=== PATIENT | male | born 1950 | race Hispanic/Latino ===

== ENCOUNTER 2016-10-05 10:07 | Emergency (ER) | payer MEDICARE, OTHER ==
[2016-10-05 10:07] VITALS: BMI 30.4
[2016-10-05 10:22] VITALS: RESP 19; TEMP 98
[2016-10-05 10:34] VITALS: BP 138/90; PULSE 81; O2SAT 98
--- NOTE | 2016-10-05 11:19 | ED PDOC ---
HPI: General Adult Time Seen by Provider: 10/05/16 10:37 Chief Complaint (Nursing): Flu-like Symptoms Chief Complaint (Provider): cough with sputum History Per: Patient History/Exam Limitations: no limitations Additional Complaint(s): 66yo male comes in complaining of worsening cough for 3 weeks. States he occasionally gets nausea from coughing. Reports sputum and pleuritic paoin. No fever or chills. States he had a normal cardiac workup when was diagnosed with pancreatitis several years ago. Has not seen his PMD Past Medical History Reviewed: Historical Data, Nursing Documentation, Vital Signs Vital Signs: Last Vital Signs Temp 98.0 F 10/05/16 10:22 Pulse 81 10/05/16 10:33 Resp 19 10/05/16 10:33 BP 138/90 10/05/16 10:33 Pulse Ox 98 10/05/16 11:22 - Medical History PMH: Gall Bladder Disease, Pancreatitis Denies: HIV, Chronic Kidney Disease - Family History Family History: States: Unknown Family Hx - Home Medications Home Medications: Ambulatory Orders Medication Instructions Recorded Albuterol HFA [Ventolin HFA 90 2 puff IH Q4 PRN #1 unit 10/05/16 mcg/actuation (8 g)] Aspirin [Adult Low Dose Aspirin EC] 1 tab PO DAILY 10/05/16 Azithromycin [Zithromax] 250 mg PO DAILY #6 tab 10/05/16 Prednisone 50 mg PO DAILY #4 tablet 10/05/16 - Allergies Allergies/Adverse Reactions: Allergies Allergy/AdvReac Type Severity Reaction Status Date / Time No Known Allergies Allergy Verified 10/05/16 10:35 Review of Systems ROS Statement: Except As Marked, All Systems Reviewed And Found Negative Constitutional: Negative for: Fever, Chills Respiratory: Positive for: Cough, Pleuritic Pain, Sputum Physical Exam - Reviewed Nursing Documentation Reviewed: Yes Vital Signs Reviewed: Yes - Physical Exam Appears: Positive for: Well, Non-toxic, No Acute Distress Head Exam: Positive for: ATRAUMATIC, NORMAL INSPECTION, NORMOCEPHALIC Skin: Positive for: Warm, Dry Eye Exam: Positive for: EOMI, PERRL ENT: Positive for: Normal ENT Inspection Neck: Positive for: Normal, Painless ROM Cardiovascular/Chest: Positive for: Regular Rate, Rhythm, Other (+anterior chest wall tenderness, upper) Respiratory: Positive for: Wheezing (bilateral wheezing on expiration). Negative for: Rales, Rhonchi, Stridor, Respiratory Distress Gastrointestinal/Abdominal: Positive for: Normal Exam, Soft. Negative for: Tenderness Extremity: Positive for: Normal ROM, Capillary Refill (normal ). Negative for: Tenderness, Swelling Neurologic/Psych: Positive for: Alert, Oriented, Gait (normal ). Negative for: Motor/Sensory Deficits - Laboratory Results Result Diagrams: 10/05/16 10:45 10/05/16 10:45 - ECG ECG: Positive for: Interpreted By Me, Viewed By Me ECG Rhythm: Positive for: Normal QRS, Normal ST Segment, Sinus Rhythm (84). Negative for: ST/T Changes O2 Sat by Pulse Oximetry: 98 Pulse Ox Interpretation: Normal - Radiology X-Ray: Interpreted by Me X-Ray Interpretation: No Acute Disease Nebulizer Treatments/Peak Flow - Duonebs Number of Bronchodilator Doses given?: 3 - Steroid Treatment Steroid: IV - Clinical Response Clinical Response: Improved Medical Decision Making Medical Decision Making: rule out pneumonia, bronchitis, underlying heart disease. labs reviewed with no acute finding negative trop, d-dimer, EKG and CXR after nebs feeling better. no chest pain or sob, cough resolved lungs CTA bilateral given age and smoking will cover with azithro discussed finding. stable for discharge SaO2 99%, HR 72 Disposition - Clinical Impression Clinical Impression: Bronchitis - Patient ED Disposition Is Patient to be Admitted: No Counseled Patient/Family Regarding: Studies Performed, Diagnosis, Need For Followup, Rx Given - Disposition Disposition: Routine/Home Disposition Time: 14:40 Condition: IMPROVED Additional Instructions: follow up without fail with your doctor return for any new concerns Prescriptions: Prednisone 50 mg PO DAILY #4 tablet Albuterol HFA [Ventolin HFA 90 mcg/actuation (8 g)] 2 puff IH Q4 PRN #1 unit PRN Reason: Wheezing Azithromycin [Zithromax] 250 mg PO DAILY #6 tab Instructions: Acute Bronchitis (ED) Print Language: [place] Additional Comments - Additional Comments Additional Comments: Scribe Attestation Documented by Dickson Patel, acting as a scribe for Jordin Schrader PA-C. Provider Scribe Attestation All medical record entries made by the Scribe were at my direction and personally dictated by me. I have reviewed the chart and agree that the record accurately reflects my personal performance of the history, physical exam, medical decision making, and the department course for this patient. I have also personally directed, reviewed, and agree with the discharge instructions and disposition.
[2016-10-05] MEDS: Albuterol-Ipratrop 3 mg / 0.5 (3 ml) UD INH SCH ×3 (11:29→11:48)
[2016-10-05 11:32] LABS: BASO # 0.1 K/uL (0.0-0.2); BASO % 1.1 % (0.0-2.0); EOS # 0.2 K/uL (0.0-0.7); EOS % 2.8 % (0.0-4.0); HEMATOCRIT 43.4 % (35.0-51.0); LYMPH # 2.6 K/uL (1.0-4.3); LYMPH % 32.9 % (20.0-40.0); MEAN CELL VOLUME 100.5 fl (80.0-94.0); MEAN CORPUSCULAR HEMOGLOBIN 33.4 pg (27.0-31.0); MEAN CORPUSCULAR HGB CONC 33.3 g/dL (33.0-37.0); MEAN PLATELET VOLUME 8.2 fl (7.2-11.7); MONO # 0.6 K/uL (0.0-0.8); MONO % 7.7 % (0.0-10.0); NEUT # 4.4 K/uL (1.8-7.0); NEUT % 55.5 % (50.0-75.0); NRBC % 0.1 % (0.0-0.0); RED CELL DISTRIBUTION WIDTH 12.3 % (11.5-14.5)
[2016-10-05 11:42] LABS: ALB/GLOB RATIO 1.3 (1.0-2.1); ALKALINE PHOSPHATASE 47 U/L (38-126); ALT/SGPT 35 U/L (21-72); AST/SGOT 26 U/L (17-59); BILIRUBIN,TOTAL 1.1 mg/dl (0.2-1.3); BLOOD UREA NITROGEN 11 mg/dl (9-20); CALCIUM 9.3 mg/dL (8.4-10.2); CARBON DIOXIDE 25 mmol/L (22-30); CHLORIDE 104 mmol/L (98-107); GFR AFRICAN-AMERICAN > 60; GLUCOSE,RANDOM 93 mg/dL (75-110); LIPASE 85 U/L (23-300); POTASSIUM 4.1 MMOL/L (3.6-5.0); SODIUM 143 mmol/l (132-148); TOTAL PROTEIN 7.5 G/DL (6.3-8.2)
--- NOTE | 2016-10-05 15:32 | RAD ---
HISTORY: chest pain COMPARISON: No prior. TECHNIQUE: Chest PA and lateral FINDINGS: LUNGS: No active pulmonary disease. PLEURA: No significant pleural effusion identified. No pneumothorax apparent. CARDIOVASCULAR: Normal. OSSEOUS STRUCTURES: No significant abnormalities. VISUALIZED UPPER ABDOMEN: Normal. OTHER FINDINGS: None. IMPRESSION: No active disease.
--- NOTE | 2016-10-07 08:09 | CARD ---
APPROVED REPORT EKG Measurement Heart [id number] [id number] <Conclusion> Normal sinus rhythm Normal ECG
== END 2016-10-05 14:50 | disposition home or self-care (01) ==
LOC: H.ER 10:07
DX: J40 Bronchitis, not specified as acute or chronic (principal); R05 Cough; R07.9 Chest pain, unspecified
CPT/HCPCS: 71020; 80053; 83690; 83880; 84484; 85025; 85378; 93005; 94640; 96374; 99284; J2930

== ENCOUNTER 2018-03-24 | Emergency (ER) | payer MEDICARE ==
[2018-03-24] VITALS: BMI 30.4
[2018-03-24 00:46] LABS: BASO # 0.2 K/uL (0.0-0.2); BASO % 2.7 % (0.0-2.0); EOS # 0.3 K/uL (0.0-0.7); EOS % 4.4 % (0.0-4.0); LYMPH # 2.8 K/uL (1.0-4.3); LYMPH % 45.6 % (20.0-40.0); MEAN CELL VOLUME 98.8 fl (80.0-94.0); MEAN CORPUSCULAR HEMOGLOBIN 33.4 pg (27.0-31.0); MEAN CORPUSCULAR HGB CONC 33.8 g/dL (33.0-37.0); MEAN PLATELET VOLUME 7.7 fl (7.2-11.7); MONO # 0.6 K/uL (0.0-0.8); MONO % 9.6 % (0.0-10.0); NEUT # 2.3 K/uL (1.8-7.0); NEUT % 37.7 % (50.0-75.0); RBC 4.48 Mil/uL (4.40-5.90); RED CELL DISTRIBUTION WIDTH 12.8 % (11.5-14.5); WHITE BLOOD COUNT 6.2 K/uL (4.8-10.8)
[2018-03-24 00:53] LABS: ALB/GLOB RATIO 1.3 (1.0-2.1); ALBUMIN 3.9 g/dL (3.5-5.0); CALCIUM 9.2 mg/dL (8.4-10.2); GFR NON-AFRICAN AMERICAN > 60
[2018-03-24 01:00] LABS: PROTHROMBIN TIME 10.5 Seconds (9.8-13.1)
[2018-03-24 01:03] LABS: PARTIAL THROMBOPLASTIN TIME 29.6 Seconds (25.6-37.1)
[2018-03-24 01:07] LABS: ALT/SGPT 41 U/L (21-72); AST/SGOT 41 U/L (17-59); BLOOD UREA NITROGEN 19 mg/dl (9-20)
[2018-03-24 01:17] LABS: B-TYPE NATRIURETIC PEPTIDE 49.6 pg/ml (0-900)
[2018-03-24] MEDS ORDERED: Albuterol-Ipratrop 3 mg / 0.5 (3 ml) UD INH STA (01:17)
[2018-03-24] MEDS ORDERED: Albuterol-Ipratrop 3 mg / 0.5 (3 ml) UD ONE (01:22)
--- NOTE | 2018-03-24 01:32 | ED PDOC ---
HPI: SOB/CHF/COPD Time Seen by Provider: 03/24/18 00:14 Chief Complaint (Nursing): Shortness Of Breath Chief Complaint (Provider): Cough History Per: Patient History/Exam Limitations: no limitations Onset/Duration Of Symptoms: Days (x14) Current Symptoms Are (Timing): Still Present Additional Complaint(s): Jarvis Dougherty is a 67 year old male with no past medical history who is presenting to the ED for evaluation of cough and associated congestion, onset 2 weeks ago. Patient also complains of chest tightness and is unable to expectorate but feels like he has phlegm and pressure to forehead. He denies any nausea, vomiting, or visual disturbances. PMD: none provided Past Medical History Reviewed: Historical Data, Nursing Documentation, Vital Signs Vital Signs: Last Vital Signs Temp 98.1 F 03/24/18 00:02 Pulse 77 03/24/18 00:02 Resp 16 03/24/18 00:22 BP 177/100 H 03/24/18 00:02 Pulse Ox 98 03/24/18 01:41 - Medical History PMH: No Chronic Diseases, Gall Bladder Disease, Pancreatitis Denies: HIV, Chronic Kidney Disease - Surgical History Other surgeries: HEMORRHOIDECTOMY - Family History Family History: States: Unknown Family Hx - Social History Current smoker - smoking cessation education provided: No (Former smoker) Alcohol: Social Drugs: Denies - Home Medications Home Medications: Ambulatory Orders Medication Instructions Recorded Albuterol HFA [Ventolin HFA 90 2 puff IH Q4 PRN #1 unit 10/05/16 mcg/actuation (8 g)] Aspirin [Adult Low Dose Aspirin EC] 1 tab PO DAILY 10/05/16 Azithromycin [Zithromax] 250 mg PO DAILY #6 tab 10/05/16 Prednisone 50 mg PO DAILY #4 tablet 10/05/16 Albuterol HFA [Ventolin HFA 90 1 - 2 puff IH Q6 PRN #1 inhaler 03/24/18 mcg/actuation (8 g)] Azithromycin [Zithromax] 250 mg PO QAM #1 pkg 03/24/18 - Allergies Allergies/Adverse Reactions: Allergies Allergy/AdvReac Type Severity Reaction Status Date / Time No Known Allergies Allergy Verified 10/05/16 10:35 Review of Systems ROS Statement: Except As Marked, All Systems Reviewed And Found Negative Eyes: Negative for: Vision Change ENT: Positive for: Nose Congestion Cardiovascular: Positive for: Other (chest tightness) Respiratory: Positive for: Cough Gastrointestinal: Negative for: Nausea, Vomiting Physical Exam - Reviewed Nursing Documentation Reviewed: Yes Vital Signs Reviewed: Yes - Physical Exam Appears: Positive for: Non-toxic, No Acute Distress Head Exam: Positive for: ATRAUMATIC, NORMAL INSPECTION, NORMOCEPHALIC Skin: Positive for: Normal Color, Warm, DRY Eye Exam: Positive for: EOMI, Normal appearance, PERRL ENT: Positive for: Normal ENT Inspection Neck: Positive for: Normal, Painless ROM Cardiovascular/Chest: Positive for: Regular Rate, Rhythm. Negative for: Murmur Respiratory: Positive for: Decreased Breath Sounds (bilaterally), Rhonchi (at bases) Gastrointestinal/Abdominal: Positive for: Normal Exam, Soft. Negative for: Tenderness, Distended, Guarding Back: Positive for: Normal Inspection. Negative for: L CVA Tenderness, R CVA Tenderness Extremity: Positive for: Normal ROM Neurologic/Psych: Positive for: Alert, Oriented. Negative for: Motor/Sensory Deficits - Laboratory Results Result Diagrams: 03/24/18 00:35 03/24/18 00:35 - ECG O2 Sat by Pulse Oximetry: 98 (RA) Pulse Ox Interpretation: Normal Medical Decision Making Medical Decision Making: Time: 00:35 Impression: 67 year old male with bronchitis and sinusitis Plan: --EKG --B-Type Natriuretic Peptide --CMP --Troponin --CBC --PTT --Coag --Chest X-Ray --Duoneb 6 ml INH --Peak Flow Pre/Post Tx 2:14 Labs were reviewed with no clinically significant abnormalities. Chest x-ray showed no active disease. Upon provider evaluation patient is medically stable, and requires no further treatment in the ED at this time. Patient will be discharged home. Counseling was provided and all questions were answered regarding diagnosis and need for follow up with PMD in 2-3 days. There is agreement to discharge plan. Return if symptoms persist or worsen. Scribe Attestation: Documented by Frida Zafar, acting as a scribe for Tree Velazco MD. Provider Scribe Attestation: All medical record entries made by the Scribe were at my direction and personally dictated by me. I have reviewed the chart and agree that the record accurately reflects my personal performance of the history, physical exam, medical decision making, and the department course for this patient. I have also personally directed, reviewed, and agree with the discharge instructions and disposition. Disposition - Clinical Impression Clinical Impression: Bronchitis, Sinusitis - Patient ED Disposition Is Patient to be Admitted: No - Disposition Disposition: Routine/Home Disposition Time: 02:15 Condition: STABLE Prescriptions: Albuterol HFA [Ventolin HFA 90 mcg/actuation (8 g)] 1 - 2 puff IH Q6 PRN #1 inhaler PRN Reason: Shortness Of Breath Azithromycin [Zithromax] 250 mg PO QAM #1 pkg Instructions: Sinusitis in Adults, Acute Bronchitis Forms: [facility] (I[place]ic)
[2018-03-24 02:42] VITALS: BP 142/68; PULSE 65; RESP 17; TEMP 97.8; O2SAT 95
--- NOTE | 2018-03-24 06:16 | CARD ---
APPROVED REPORT Date of service: 03/24/2018 EKG Measurement Heart [id number] [id number] <Conclusion> Normal sinus rhythm Normal ECG
--- NOTE | 2018-03-24 09:09 | RAD ---
Date of service: 03/24/2018 HISTORY: cough COMPARISON: 10/05/2016 FINDINGS: LUNGS: No active pulmonary disease. PLEURA: No significant pleural effusion identified, no pneumothorax apparent. CARDIOVASCULAR: Normal. OSSEOUS STRUCTURES: No significant abnormalities. VISUALIZED UPPER ABDOMEN: Mammilation and asymmetrical elevation of the right hemidiaphragm noted-similar OTHER FINDINGS: None. IMPRESSION: No interval pathology appreciated.
== END 2018-03-24 02:30 | disposition home or self-care (01) ==
LOC: H.ER
DX: J40 Bronchitis, not specified as acute or chronic (principal); J32.9 Chronic sinusitis, unspecified